=== PATIENT | female | born 1995 | race Caucasian/White ===

== ENCOUNTER → 2017-04-26 | Outpatient (CLI) | payer MEDICAID | LOC: FIMAGING 18:52 | PROVIDERS: ATTEND Psychiatry & Neurology Neurology | DX: R56.9 Unspecified convulsions (principal) ==

== ENCOUNTER → 2017-05-02 | Outpatient (CLI) | payer MEDICAID ==
--- NOTE | 2017-05-02 21:11 | CPEEG ---
[f rep st] ELECTROENCEPHALOGRAM A 4-HOUR VIDEO EEG DATE OF STUDY: 05/02/2017 DATE OF INTERPRETATION: 05/02/2017 INTERPRETATION: This 4-hour video EEG recording is essentially normal. There was no definite potentially epileptogenic abnormalities present during the awake or sleep recordings. During the video EEG monitoring session, the patient denied any clinical events. If there is continued clinical concern, referral to an inpatient video EEG monitoring may be useful. REPORT: This 4-hour video EEG contains 9-10 Hz alpha to the posterior head regions. The background activity was normal and symmetric. There was no definite abnormal activation at rest, during photic stimulation, or hyperventilation. The patient did have occasional drowsy bursts with embedded sharply contoured wave forms. The patient became drowsy and fell into sustained sleep during the study. During drowsiness and sleep, there was no abnormal epileptiform activation. The patient did not have any clinical events during the video EEG monitoring session. /[id number]/MODL MTDD
== END ==
LOC: FCPNEURO 08:29
PROVIDERS: ATTEND Psychiatry & Neurology Neurology
DX: R56.9 Unspecified convulsions (principal); G60.9 Hereditary and idiopathic neuropathy, unspecified

== ENCOUNTER 2018-05-21 17:44 | Emergency (ER) | payer MEDICAID ==
--- NOTE | 2018-05-21 18:06 | EDPHY ---
H & P Time Seen by Provider: 05/21/18 17:56 HPI/ROS: HPI Depressed, suicidal ideation. 23-year-old female on foot. This patient is intermittently homeless. She reports that she has a history of antisocial personality disorder. She reports that she is a meth abuser but has been clean for 1 week now. She reports she has been trying to move back in with her parents but they will not allow her to group back in. She tells me that she has hit rock bottom and is now having suicidal thoughts. She does not have a specific plan. She reports that she has been living intermittently with her grandmother who lives and I what her grandmother makes her very angry and she had to get away from her grandmother. Her parents currently live in [place]. She reports that she has made appointments with [facility] in the past but has not actually followed up with them. ROS: Constitutional: No fever, no chills. As above. Eyes: No discharge. No changes in vision. ENT: No sore throat. No nasal congestion or rhinorrhea. Respiratory: No cough. No shortness of breath. Cardiac: No chest pain, no palpitations. Gastrointestinal: No abdominal pain, no vomiting, no diarrhea. Genitourinary: No hematuria. No dysuria or increased frequency with urination. Musculoskeletal: No back pain. No neck pain. No myalgias or arthralgias. Skin: No rashes. Neurological: No headache. No focal weakness or altered sensation. Past medical history: Antisocial personality disorder. Polyneuropathy. Depression. Social history: Methamphetamine addiction. Denies alcohol. Denies other IV drugs or street drugs. Nonsmoker. Physical Exam: General Appearance: Alert, no distress. This patient is responding to questions appropriately and in full sentences. This patient appears well- hydrated and well-nourished. Eyes: Pupils equal and round no pallor or injection. No lid edema, erythema or injection. Respiratory: There are no retractions, lungs are clear to auscultation with good air movement bilaterally. Cardiovascular: Regular rate and rhythm. No murmur. Gastrointestinal: Abdomen is soft and nontender, no masses, bowel sounds normal. No focal tenderness at McBurney's point. No Almanzar sign. Neurological: Motor sensory function is grossly intact. Cranial nerves are normal. Gait is normal. Skin: Warm and dry, no rashes. Musculoskeletal: Neck is supple and nontender. Extremities are symmetrical. All joints range without pain or impingement. Psychiatric: No agitation. No depression. Database: EKG: Imaging: Procedures: Emergency department course: Triage vital signs reviewed. She is slightly tachycardic. Triage vital signs are otherwise unremarkable. She was placed on a detainer by myself at 6:00 p.m.. [facility] has been notified. Appropriate blood work ordered. 9:25 p.m., I discussed the patient's presentation with [facility]. They have evaluated her. The patient is not suicidal. She is seeking treatment for substance abuse. [facility] has arranged for treatment options. The patient does feel comfortable being discharged. Follow-up and return to emergency department precautions reviewed with her. All of her questions were answered. The patient was discharged in good condition. Differential Diagnosis: The differential diagnosis on this patient includes but is not limited to malingering, major depression, situational depression, suicidal ideation. This represents a partial list of diagnoses considered. These considerations are based on history, physical exam, past history, reassessment and diagnostic testing. Smoking Status: Heavy smoker Constitutional: Initial Vital Signs Temperature (C) 36.7 C 05/21/18 17:49 Heart Rate 115 H 05/21/18 17:49 Respiratory Rate 18 05/21/18 17:49 Blood Pressure 155/85 H 05/21/18 17:49 O2 Sat (%) 99 05/21/18 17:49 O2 Delivery Mode Room Air Allergies/Adverse Reactions: latex Allergy (Verified 05/21/18 17:49) morphine Allergy (Verified 05/21/18 17:48) Penicillins Allergy (Verified 05/21/18 17:49) Home Medications: Medication Instructions Recorded Topamax 05/21/18 Medical Decision Making - Data Points Laboratory Results: Laboratory Results 05/21/18 18:18 05/21/18 18:18 05/21/18 05/21/18 05/21/18 18:18 18:18 18:18 WBC RBC Hgb Hct MCV MCH MCHC RDW Plt Count MPV Neut % (Auto) Lymph % (Auto) [place] % (Auto) Eos % (Auto) Baso % (Auto) Nucleat RBC Rel Count Absolute Neuts (auto) Absolute Lymphs (auto) Absolute Monos (auto) Absolute Eos (auto) Absolute Basos (auto) Absolute Nucleated RBC Immature Gran % Immature Gran # Sodium 139 mEq/L mEq/L (135-145) Potassium 4.3 mEq/L mEq/L (3.3-5.0) Chloride 107 mEq/L mEq/L (97-110) Carbon Dioxide 21 mEq/l L mEq/l (22-31) Anion Gap 11 mEq/L mEq/L (6-14) BUN 18 mg/dL mg/dL (7-23) Creatinine 0.8 mg/dL mg/dL (0.6-1.0) Estimated GFR > 60 Glucose 83 mg/dL mg/dL (70-100) Calcium 9.6 mg/dL mg/dL (8.5-10.4) Beta HCG, Qual NEGATIVE Urine Opiates Screen NEGATIVE (NEGATIVE) Urine Barbiturates NEGATIVE (NEGATIVE) Ur Phencyclidine Scrn NEGATIVE (NEGATIVE) Ur Amphetamine Screen NEGATIVE (NEGATIVE) U Benzodiazepines Scrn NEGATIVE (NEGATIVE) Urine Cocaine Screen NEGATIVE (NEGATIVE) U Marijuana (THC) Screen NEGATIVE (NEGATIVE) Ethyl Alcohol < 10 mg/dL mg/dL (0-10) 05/21/18 18:18 WBC 10.26 10^3/uL H 10^3/uL (3.80-9.50) RBC 5.57 10^6/uL H 10^6/uL (4.18-5.33) Hgb 14.2 g/dL g/dL (12.6-16.3) Hct 44.3 % % (38.0-47.0) MCV 79.5 fL L fL (81.5-99.8) MCH 25.5 pg L pg (27.9-34.1) MCHC 32.1 g/dL L g/dL (32.4-36.7) RDW 17.6 % H % (11.5-15.2) Plt Count 332 10^3/uL 10^3/uL (150-400) MPV 9.3 fL fL (8.7-11.7) Neut % (Auto) 46.1 % % (39.3-74.2) Lymph % (Auto) 38.9 % % (15.0-45.0) [place] % (Auto) 8.6 % % (4.5-13.0) Eos % (Auto) 5.1 % % (0.6-7.6) Baso % (Auto) 0.8 % % (0.3-1.7) Nucleat RBC Rel Count 0.0 % % (0.0-0.2) Absolute Neuts (auto) 4.74 10^3/uL 10^3/uL (1.70-6.50) Absolute Lymphs (auto) 3.99 10^3/uL H 10^3/uL (1.00-3.00) Absolute Monos (auto) 0.88 10^3/uL H 10^3/uL (0.30-0.80) Absolute Eos (auto) 0.52 10^3/uL H 10^3/uL (0.03-0.40) Absolute Basos (auto) 0.08 10^3/uL 10^3/uL (0.02-0.10) Absolute Nucleated RBC 0.00 10^3/uL 10^3/uL (0-0.01) Immature Gran % 0.5 % % (0.0-1.1) Immature Gran # 0.05 10^3/uL 10^3/uL (0.00-0.10) Sodium Potassium Chloride Carbon Dioxide Anion Gap BUN Creatinine Estimated GFR Glucose Calcium Beta HCG, Qual Urine Opiates Screen Urine Barbiturates Ur Phencyclidine Scrn Ur Amphetamine Screen U Benzodiazepines Scrn Urine Cocaine Screen U Marijuana (THC) Screen Ethyl Alcohol Departure - Departure Disposition: Home, Routine, Self-Care Clinical Impression: Situational depression, Substance abuse Condition: Good Instructions: Methamphetamine Abuse (ED) Additional Instructions: Read and follow provided instructions. Follow-up as instructed by Behavioral [facility] regarding treatment for substance abuse. Return to the emergency department for worsening depression, suicidal thoughts or other serious concerns. Referrals: Ban Moctezuma [Primary Care Provider] - As per Instructions
[2018-05-21 18:29] LABS: PLATELET COUNT 332 10^3/uL (150-400)
[2018-05-21 21:47] VITALS: BP 138/84
--- NOTE | 2018-05-21 23:00 | ASMTLCPROG ---
Notes Note: Notes: Met with Pt.PT said she wasn't suicidal but wanted inpatient substance abuse treatment and didn't want to be homeless. PT said she is staying with her grandmother in [place] and will follow through with referrals for treatment. PT denies thoughts of suicde and was given referrals for [facility] and [facility]. Date Signed: 05/21/2018 10:59 PM Electronically Signed By:Mary Lou Covington
== END 2018-05-21 21:46 | disposition home or self-care (01) ==
DX: F43.21 Adjustment disorder with depressed mood (principal); F19.10 Other psychoactive substance abuse, uncomplicated; F60.2 Antisocial personality disorder
CPT/HCPCS: 80305; G0480